=== PATIENT | female | born 1995 | race African-American/Black ===

== ENCOUNTER 2019-02-17 10:36 | Emergency (ER) | payer MEDICAID ==
[~2019-02-17] VITALS: Ht 162.6 cm; Wt 55.0 kg
[2019-02-17 10:56] VITALS: BP 159/99
== END 2019-02-17 12:02 | disposition home or self-care (01) ==
LOC: ER 10:36
DX: I10 Essential (primary) hypertension (principal)
CPT/HCPCS: 99281